=== PATIENT | female | born 1995 | race Caucasian/White ===

== ENCOUNTER 2021-10-18 12:13 | Day surgery (SDC) | payer BC ==
[~2021-10-18 12:13] MED LIST: Albuterol 0.083% 2.5 MG/3 ML Neb Soln NEB PRN; Doxycycline 200 MG in Dextrose 5% in Water 250 ML IV SCH; HYDROmorphone 1 MG/ML Syringe IVPUSH PRN; Metoclopramide 10 MG/2 ML SDV IVPUSH PRN; Morphine 4 MG/ML VIAL IVPUSH PRN; Naloxone 0.4 MG/ML SDV IVPUSH PRN; Ondansetron 4 MG/2 ML SDV IVPUSH PRN; fentaNYL 100 MCG/2 ML SDV IVPUSH PRN
[2021-10-18] MEDS ORDERED: Ondansetron 4 MG/2 ML SDV ONE (12:21)
[2021-10-18] MEDS ORDERED: Propofol 200 MG/20 ML SDV ONE (12:21)
[2021-10-18] MEDS ORDERED: Midazolam 1 MG/ML 2 ML SDV ONE (12:22)
[2021-10-18] MEDS ORDERED: fentaNYL 100 MCG/2 ML SDV ONE (12:22)
[2021-10-18] MEDS ORDERED: Metoclopramide 10 MG/2 ML SDV ONE (12:24)
[2021-10-18] MEDS ORDERED: Lactated Ringers 1,000 ML IV SCH (13:00)
[2021-10-18] MEDS ORDERED: Methylergonovine 0.2 MG/1 ML Amp ONE (13:25)
[2021-10-18 13:38] LABS: BLOOD UREA NITROGEN,BUN 7 mg/dL (7.0-18.0); CARBON DIOXIDE,CO2 21.1 mmol/L (21.0-32.0); CHLORIDE,CL 103 mmol/L (98-107); GLUCOSE RANDOM 82 mg/dL (74-106); POTASSIUM,K 3.6 mmol/L (3.5-5.1); SODIUM,NA 136 mmol/L (136-145)
[2021-10-18 13:41] LABS: ESTIMATED GFR > 60.0 ml/min
[2021-10-18] MEDS ORDERED: Acetaminophen/HYDROcodone 325-5 MG Tab PO PRN (13:42)
== END 2021-10-18 14:45 | disposition home or self-care (01) ==
LOC: MW.SDS 12:13
PROVIDERS: ATTEND Obstetrics & Gynecology
DX: O02.1 Missed abortion (principal); J45.909 Unspecified asthma, uncomplicated; F32.A Depression, unspecified; G43.909 Migraine, unspecified, not intractable, without status migrainosus; Z87.891 Personal history of nicotine dependence; Z91.013 Allergy to seafood; Z79.899 Other long term (current) drug therapy
CPT/HCPCS: 36415; 59820; 80053; 85027; 86850; 86900; 86901; J0131; J2210; J2250; J2405; J2704; J2765; J3010; J3490; J7060; J7120; 01965